=== PATIENT | female | born 1970 | race African-American/Black ===

== ENCOUNTER 2021-07-02 12:23 | Inpatient (IN) | payer OTHER ==
[2021-07-02] MEDS ORDERED: LABETALOL HCL 5 MG/1 ML (100MG/20 ML VIAL) IVPUSH ONE (15:07)
[2021-07-02] MEDS ORDERED: LABETALOL HCL 5 MG/1 ML (100MG/20 ML VIAL) ONE (15:29)
[2021-07-02 16:50] LABS: EPI CELLS 31 /uL (0-25.1); HYALINE CASTS 1 /uL (0-3.1); URINE APPEARANCE CLOUDY; URINE BACTERIA >9,000 /uL (0-1359); URINE BILIRUBIN NEGATIVE (NEGATIVE); URINE COLOR YELLOW; URINE GLUCOSE (UA) NEGATIVE (NEGATIVE); URINE KETONE NEGATIVE (NEGATIVE); URINE LEUK ESTERASE NEGATIVE (NEGATIVE); URINE NITRITE POSITIVE (NEGATIVE); URINE PROTEIN NEGATIVE (NEGATIVE); URINE RBC 9 /uL (0-23.9); URINE WBC 21 /uL (0-25.8)
[2021-07-02 17:04] LABS: ALBUMIN 3.6 g/dl (3.4-5.0); CALCIUM 9.4 mg/dL (8.5-10.1)
[2021-07-02 17:07] LABS: BASO % 0.4 % (0-2.0); CREATININE 0.7 mg/dL (0.55-1.3); EOS % 3.7 % (0-4.5); HEMATOCRIT 42.3 % (32.4-45.2); HEMOGLOBIN 14.4 GM/dL (10.7-15.3); LYMPH % 25.8 % (8-40); MCH 30.4 pg (25.7-33.7); MCHC 34.2 g/dl (32.0-36.0); MEAN CELL VOLUME 88.9 fl (80-96); MEAN PLT VOLUME 9.3 fl (7.5-11.1); MONO % 5.6 % (3.8-10.2); NEUT % 64.5 % (42.8-82.8); PLATELET COUNT 275 10^3/uL (134-434); RBC 4.76 M/mm3 (3.60-5.2); RDW 13.8 % (11.6-15.6); WHITE BLOOD COUNT 11.8 K/mm3 (4.0-10.0)
[2021-07-02] MEDS ORDERED: CEFTRIAXONE 1,000 MG in DEXTROSE 5%-WATER - 50 ML IVPB ONE (17:08)
[2021-07-02 17:09] LABS: BILIRUBIN,TOTAL 0.6 mg/dL (0.2-1); TOT PROT 7.1 g/dl (6.4-8.2)
[2021-07-02 17:11] LABS: INR 1.09 (0.83-1.09); PROTHROMBIN TIME (PATIENT) 12.6 SEC (9.7-13.0)
[2021-07-02] MEDS ORDERED: CEFTRIAXONE 1 GM/50 ML BAG ONE (17:47)
[2021-07-02] MEDS ORDERED: ASPIRIN 81 MG CHEWABLE TABLETS ONE (23:33)
[2021-07-02] MEDS ORDERED: LISINOPRIL 20 MG TABLET ONE (23:34)
[2021-07-02] MEDS: ASPIRIN 81 MG CHEWABLE TABLETS PO SCH (23:41)
[2021-07-02] MEDS: LISINOPRIL 20 MG TABLET PO SCH (23:41)
[2021-07-02] MEDS: NICOTINE 14 MG/24 HOURS TOPICAL PATCH TD SCH (23:41)
[2021-07-03 07:44] LABS: BASO % 0.4 % (0-2.0); EOS % 3.9 % (0-4.5); HEMATOCRIT 41.4 % (32.4-45.2); HEMOGLOBIN 14.5 GM/dL (10.7-15.3); MCH 31.1 pg (25.7-33.7); MCHC 35.1 g/dl (32.0-36.0); MEAN CELL VOLUME 88.5 fl (80-96); MEAN PLT VOLUME 9.2 fl (7.5-11.1); MONO % 6.2 % (3.8-10.2); NEUT % 64.5 % (42.8-82.8); PLATELET COUNT 266 10^3/uL (134-434); RBC 4.67 M/mm3 (3.60-5.2); RDW 13.8 % (11.6-15.6); WHITE BLOOD COUNT 11.9 K/mm3 (4.0-10.0)
[2021-07-03 08:01] LABS: ALBUMIN 3.6 g/dl (3.4-5.0)
[2021-07-03 08:04] LABS: MAGNESIUM 2.6 mg/dL (1.8-2.4)
[2021-07-03 08:05] LABS: CREATININE 0.8 mg/dL (0.55-1.3)
[2021-07-03 08:09] LABS: BLOOD UREA NITROGEN 16.1 mg/dL (7-18)
[2021-07-03 08:10] LABS: CALCIUM 9.6 mg/dL (8.5-10.1)
[2021-07-03 08:11] LABS: BILIRUBIN,TOTAL 0.7 mg/dL (0.2-1); PHOSPHOROUS 4.8 mg/dL (2.5-4.9)
[2021-07-03] MEDS ORDERED: LISINOPRIL 20 MG TABLET ONE (09:06)
[2021-07-03] MEDS ORDERED: ENOXAPARIN NA (PORCINE) 40 MG/0.4 ML DISP.SYRIN SQ ONE (09:06)
[2021-07-03] MEDS ORDERED: ASPIRIN 81 MG CHEWABLE TABLETS ONE (09:06)
[2021-07-03] MEDS ORDERED: POTASSIUM CHLORIDE TABS 20 MEQ TABLET.ER (FP) PO ONE ×2 (10:45→13:21)
[2021-07-03] MEDS ORDERED: ATENOLOL 25 MG TABLET (FP) PO SCH (11:45)
[2021-07-03] MEDS: NICOTINE 14 MG/24 HOURS TOPICAL PATCH TD SCH (13:17)
[2021-07-03] MEDS: LISINOPRIL 20 MG TABLET PO SCH (13:18)
[2021-07-03] MEDS ORDERED: ATENOLOL 25 MG TABLET (FP) ONE (13:21)
[2021-07-03] MEDS ORDERED: LOSARTAN POTASSIUM 50 MG TABLET ONE (13:21)
[2021-07-03] MEDS: ENOXAPARIN NA (PORCINE) 40 MG/0.4 ML DISP.SYRIN SQ SCH (13:33)
[2021-07-03] MEDS: ASPIRIN 81 MG CHEWABLE TABLETS PO SCH (13:33)
[2021-07-03] MEDS: LOSARTAN POTASSIUM 50 MG TABLET PO SCH (13:35)
[2021-07-03] MEDS ORDERED: LABETALOL HCL 100 MG TABLET (FP) PO ONE (17:10)
[2021-07-03] MEDS ORDERED: CLOPIDOGREL BISULFATE 75 MG TABLET (FP) ONE (18:21)
[2021-07-03] MEDS ORDERED: LABETALOL HCL 100 MG TABLET (FP) ONE ×2 (18:21→21:48)
[2021-07-03] MEDS: CLOPIDOGREL BISULFATE 75 MG TABLET (FP) PO SCH (18:37)
[2021-07-03] MEDS ORDERED: ATORVASTATIN CA 80 MG TABLET (FP) ONE (21:31)
[2021-07-03] MEDS: ATORVASTATIN CA 40 MG TABLET (FP) PO SCH (21:52)
[2021-07-03] MEDS ORDERED: ATORVASTATIN CA 40 MG TABLET (FP) PO SCH (22:00)
[2021-07-03] MEDS ORDERED: LABETALOL HCL 100 MG TABLET (FP) PO SCH (22:00)
[2021-07-04 01:22] VITALS: BMI 33.2
[2021-07-04 08:13] LABS: BASO % 0.7 % (0-2.0); EOS % 4.1 % (0-4.5); HEMATOCRIT 42.3 % (32.4-45.2); LYMPH % 30.5 % (8-40); MCH 29.7 pg (25.7-33.7); MCHC 33.2 g/dl (32.0-36.0); MEAN CELL VOLUME 89.6 fl (80-96); MEAN PLT VOLUME 10.1 fl (7.5-11.1); MONO % 5.9 % (3.8-10.2); NEUT % 58.8 % (42.8-82.8); PLATELET COUNT 256 10^3/uL (134-434); RBC 4.73 M/mm3 (3.60-5.2); RDW 14.1 % (11.6-15.6); WHITE BLOOD COUNT 11.4 K/mm3 (4.0-10.0)
[2021-07-04] MEDS ORDERED: LABETALOL HCL 5 MG/1 ML (100MG/20 ML VIAL) IVPUSH ONE (08:30)
[2021-07-04 08:49] LABS: CALCIUM 9.5 mg/dL (8.5-10.1)
[2021-07-04 08:50] LABS: ALBUMIN 3.5 g/dl (3.4-5.0); MAGNESIUM 2.6 mg/dL (1.8-2.4)
[2021-07-04 08:53] LABS: CREATININE 0.8 mg/dL (0.55-1.3)
[2021-07-04 08:54] LABS: BILIRUBIN,TOTAL 0.7 mg/dL (0.2-1); PHOSPHOROUS 4.1 mg/dL (2.5-4.9); TOT PROT 6.6 g/dl (6.4-8.2)
[2021-07-04] MEDS: NICOTINE 14 MG/24 HOURS TOPICAL PATCH TD SCH ×2 (10:10→11:32)
[2021-07-04] MEDS: ASPIRIN 81 MG CHEWABLE TABLETS PO SCH (10:15)
[2021-07-04] MEDS: LOSARTAN POTASSIUM 50 MG TABLET PO SCH (10:30)
[2021-07-04] MEDS: CLOPIDOGREL BISULFATE 75 MG TABLET (FP) PO SCH (10:30)
[2021-07-04] MEDS: ENOXAPARIN NA (PORCINE) 40 MG/0.4 ML DISP.SYRIN SQ SCH ×2 (11:23→11:31)
[2021-07-04] MEDS: LABETALOL HCL 200 MG TABLET (FP) PO SCH ×2 (11:24→21:07)
[2021-07-04] MEDS: ATORVASTATIN CA 40 MG TABLET (FP) PO SCH (21:07)
[2021-07-05 07:17] LABS: BASO % 0.3 % (0-2.0); EOS % 3.9 % (0-4.5); HEMATOCRIT 42.3 % (32.4-45.2); HEMOGLOBIN 13.8 GM/dL (10.7-15.3); LYMPH % 28.5 % (8-40); MCH 29.6 pg (25.7-33.7); MCHC 32.7 g/dl (32.0-36.0); MEAN CELL VOLUME 90.4 fl (80-96); MEAN PLT VOLUME 9.8 fl (7.5-11.1); NEUT % 61.3 % (42.8-82.8); PLATELET COUNT 268 10^3/uL (134-434); RBC 4.67 M/mm3 (3.60-5.2); WHITE BLOOD COUNT 11.6 K/mm3 (4.0-10.0)
[2021-07-05 07:46] LABS: ALBUMIN 3.4 g/dl (3.4-5.0); BLOOD UREA NITROGEN 16.3 mg/dL (7-18); CALCIUM 9.5 mg/dL (8.5-10.1); MAGNESIUM 2.3 mg/dL (1.8-2.4)
[2021-07-05 07:49] LABS: CREATININE 0.8 mg/dL (0.55-1.3); PHOSPHOROUS 4.3 mg/dL (2.5-4.9)
[2021-07-05 07:51] LABS: BILIRUBIN,TOTAL 0.7 mg/dL (0.2-1); TOT PROT 6.5 g/dl (6.4-8.2)
[2021-07-05] MEDS ORDERED: LABETALOL HCL 5 MG/1 ML (100MG/20 ML VIAL) IVPUSH ONE (08:07)
[2021-07-05] MEDS: ENOXAPARIN NA (PORCINE) 40 MG/0.4 ML DISP.SYRIN SQ SCH ×2 (10:04→10:12)
[2021-07-05] MEDS: LOSARTAN POTASSIUM 50 MG TABLET PO SCH (10:04)
[2021-07-05] MEDS: ASPIRIN 81 MG CHEWABLE TABLETS PO SCH (10:04)
[2021-07-05] MEDS: CLOPIDOGREL BISULFATE 75 MG TABLET (FP) PO SCH (10:04)
[2021-07-05] MEDS: NICOTINE 14 MG/24 HOURS TOPICAL PATCH TD SCH ×2 (10:05→10:13)
[2021-07-05] MEDS: LABETALOL HCL 100 MG TABLET (FP) PO SCH ×2 (10:05→22:48)
[2021-07-05] MEDS: ATORVASTATIN CA 40 MG TABLET (FP) PO SCH (22:48)
[2021-07-06 07:03] LABS: BASO % 0.3 % (0-2.0); EOS % 4.3 % (0-4.5); HEMATOCRIT 40.5 % (32.4-45.2); HEMOGLOBIN 13.9 GM/dL (10.7-15.3); MCH 30.5 pg (25.7-33.7); MCHC 34.3 g/dl (32.0-36.0); MEAN CELL VOLUME 88.9 fl (80-96); MEAN PLT VOLUME 9.3 fl (7.5-11.1); MONO % 6.3 % (3.8-10.2); NEUT % 63.1 % (42.8-82.8); PLATELET COUNT 266 10^3/uL (134-434); RBC 4.55 M/mm3 (3.60-5.2)
[2021-07-06 07:19] LABS: CALCIUM 9.8 mg/dL (8.5-10.1)
[2021-07-06 07:20] LABS: ALBUMIN 3.5 g/dl (3.4-5.0); MAGNESIUM 2.3 mg/dL (1.8-2.4)
[2021-07-06 07:22] LABS: PHOSPHOROUS 4.2 mg/dL (2.5-4.9)
[2021-07-06 07:23] LABS: CREATININE 0.8 mg/dL (0.55-1.3)
[2021-07-06 07:24] LABS: BILIRUBIN,TOTAL 0.5 mg/dL (0.2-1); TOT PROT 6.6 g/dl (6.4-8.2)
[2021-07-06] MEDS: LOSARTAN POTASSIUM 50 MG TABLET PO SCH (09:31)
[2021-07-06] MEDS ORDERED: REGADENOSON 0.4 MG/5 ML PRE-FILLED SYRINGE IVPUSH ONE ×2 (12:03→12:05)
[2021-07-06] MEDS: ENOXAPARIN NA (PORCINE) 40 MG/0.4 ML DISP.SYRIN SQ SCH ×2 (13:57→14:02)
[2021-07-06] MEDS: NICOTINE 14 MG/24 HOURS TOPICAL PATCH TD SCH (13:58)
[2021-07-06] MEDS: ASPIRIN 81 MG CHEWABLE TABLETS PO SCH (13:58)
[2021-07-06] MEDS: CLOPIDOGREL BISULFATE 75 MG TABLET (FP) PO SCH (13:58)
[2021-07-06] MEDS: LABETALOL HCL 100 MG TABLET (FP) PO SCH ×2 (13:58→21:14)
[2021-07-06] MEDS ORDERED: LABETALOL HCL 100 MG TABLET (FP) PO SCH (15:57)
[2021-07-06] MEDS: amLODIPine BESYLATE 10 MG TABLET (FP) PO SCH (17:39)
[2021-07-06] MEDS: ATORVASTATIN CA 40 MG TABLET (FP) PO SCH (21:15)
[2021-07-07] MEDS: ASPIRIN 81 MG CHEWABLE TABLETS PO SCH (11:07)
[2021-07-07] MEDS: LOSARTAN POTASSIUM 50 MG TABLET PO SCH (11:07)
[2021-07-07] MEDS: CLOPIDOGREL BISULFATE 75 MG TABLET (FP) PO SCH (11:07)
[2021-07-07] MEDS: NICOTINE 14 MG/24 HOURS TOPICAL PATCH TD SCH (11:08)
[2021-07-07] MEDS: LABETALOL HCL 100 MG TABLET (FP) PO SCH ×2 (11:08→21:26)
[2021-07-07] MEDS: amLODIPine BESYLATE 10 MG TABLET (FP) PO SCH (11:08)
[2021-07-07] MEDS: ENOXAPARIN NA (PORCINE) 40 MG/0.4 ML DISP.SYRIN SQ SCH (11:11)
[2021-07-07 11:48] LABS: BASO % 0.3 % (0-2.0); EOS % 4.1 % (0-4.5); HEMATOCRIT 40.9 % (32.4-45.2); HEMOGLOBIN 14.1 GM/dL (10.7-15.3); LYMPH % 24.1 % (8-40); MCH 30.5 pg (25.7-33.7); MCHC 34.3 g/dl (32.0-36.0); MEAN CELL VOLUME 88.7 fl (80-96); MEAN PLT VOLUME 9.2 fl (7.5-11.1); MONO % 6.3 % (3.8-10.2); NEUT % 65.2 % (42.8-82.8); PLATELET COUNT 265 10^3/uL (134-434); RBC 4.61 M/mm3 (3.60-5.2); RDW 13.8 % (11.6-15.6); WHITE BLOOD COUNT 11.9 K/mm3 (4.0-10.0)
[2021-07-07 12:10] LABS: CALCIUM 9.8 mg/dL (8.5-10.1)
[2021-07-07 12:11] LABS: ALBUMIN 3.6 g/dl (3.4-5.0); BLOOD UREA NITROGEN 13.7 mg/dL (7-18); MAGNESIUM 2.4 mg/dL (1.8-2.4)
[2021-07-07 12:14] LABS: CREATININE 0.8 mg/dL (0.55-1.3); PHOSPHOROUS 4.8 mg/dL (2.5-4.9)
[2021-07-07 12:15] LABS: BILIRUBIN,TOTAL 0.8 mg/dL (0.2-1); TOT PROT 6.9 g/dl (6.4-8.2)
[2021-07-07] MEDS: ATORVASTATIN CA 40 MG TABLET (FP) PO SCH (21:26)
[2021-07-08] MEDS ORDERED: POLYETHYLENE GLYCOL (HEALTHYLAX) 3350 17 GM PACKET PO ONE (10:45)
[2021-07-08] MEDS: LABETALOL HCL 100 MG TABLET (FP) PO SCH (10:59)
[2021-07-08] MEDS: ASPIRIN 81 MG CHEWABLE TABLETS PO SCH (11:00)
[2021-07-08] MEDS: LOSARTAN POTASSIUM 50 MG TABLET PO SCH (11:01)
[2021-07-08] MEDS: amLODIPine BESYLATE 10 MG TABLET (FP) PO SCH (11:01)
[2021-07-08] MEDS: NICOTINE 14 MG/24 HOURS TOPICAL PATCH TD SCH (11:02)
[2021-07-08] MEDS: CLOPIDOGREL BISULFATE 75 MG TABLET (FP) PO SCH (11:02)
[2021-07-08] MEDS: ENOXAPARIN NA (PORCINE) 40 MG/0.4 ML DISP.SYRIN SQ SCH (11:02)
[2021-07-08 15:21] VITALS: BP 137/71; PULSE 76; TEMP 98.2
== END 2021-07-08 17:00 | disposition home or self-care (01) | DRG 65 ==
LOC: JER 12:23 → JERBED 19:28 → J4W 07-04 00:49
PROVIDERS: ADMIT Hospitalist; ATTEND Internal Medicine
DX: I63.9 Cerebral infarction, unspecified (principal); G81.91 Hemiplegia, unspecified affecting right dominant side; I16.1 Hypertensive emergency; I16.0 Hypertensive urgency; I10 Essential (primary) hypertension; F12.90 Cannabis use, unspecified, uncomplicated; E78.5 Hyperlipidemia, unspecified; I69.322 Dysarthria following cerebral infarction; I65.22 Occlusion and stenosis of left carotid artery; F17.210 Nicotine dependence, cigarettes, uncomplicated; R20.2 Paresthesia of skin; E66.9 Obesity, unspecified; I25.10 Atherosclerotic heart disease of native coronary artery without angina pectoris; E78.00 Pure hypercholesterolemia, unspecified; Z91.14 Patient's other noncompliance with medication regimen; Z68.33 Body mass index [BMI] 33.0-33.9, adult; R29.703 NIHSS score 3; E87.6 Hypokalemia
CPT/HCPCS: 36415; 70450-TC; 70544-TC; 70547-TC; 70551-TC; 71045-TC-FY; 72141-TC; 78452-TC; 80053; 80061; 81003; 82550; 82962; 83036; 83735; 84100; 84443; 84484; 85025; 85610; 85730; 86850; 86900; 86901; 93005; 93010; 93017; 93306-TC; 93880-TC; 97116-GP; 97161-GP; 99285-25; A9502; C9803; J2785; U0003; U0005

== ENCOUNTER 2022-06-10 16:35 | Observation (INO) | payer OTHER ==
[2022-06-10 16:53] VITALS: BMI 30.7
[2022-06-10] MEDS ORDERED: MECLIZINE HCL 12.5 MG TABLET PO ONE (19:26)
[2022-06-10 19:46] LABS: BASO % 0.4 % (0-2.0); EOS % 5.6 % (0-4.5); HEMATOCRIT 42.8 % (32.4-45.2); HEMOGLOBIN 14.1 GM/dL (10.7-15.3); LYMPH % 28.8 % (8-40); MCH 29.3 pg (25.7-33.7); MEAN CELL VOLUME 88.9 fl (80-96); MEAN PLT VOLUME 9.7 fl (7.5-11.1); MONO % 5.7 % (3.8-10.2); NEUT % 59.5 % (42.8-82.8); PLATELET COUNT 341 10^3/uL (134-434); RBC 4.82 M/mm3 (3.60-5.2); RDW 13.9 % (11.6-15.6); WHITE BLOOD COUNT 11.4 K/mm3 (4.0-10.0)
[2022-06-10 20:11] LABS: CHLORIDE 110 mmol/L (98-107); SODIUM 147 mmol/L (136-145)
[2022-06-10 20:14] LABS: ALBUMIN 3.7 g/dl (3.4-5.0); ANION GAP 9 MMOL/L (8-16); BLOOD UREA NITROGEN 11.6 mg/dL (7-18); CALCIUM 9.6 mg/dL (8.5-10.1); CO2 28 mmol/L (21-32); GLUCOSE,RANDOM 83 mg/dL (74-106)
[2022-06-10 20:17] LABS: CREATININE 0.9 mg/dL (0.55-1.3); SGOT/AST 12 U/L (15-37); SGPT/ALT 28 U/L (13-61)
[2022-06-10 20:19] LABS: BILIRUBIN,TOTAL 0.7 mg/dL (0.2-1); TOT PROT 7.2 g/dl (6.4-8.2)
[2022-06-10 20:20] LABS: ALK PHOS 164 U/L (45-117)
[2022-06-10] MEDS ORDERED: ASPIRIN 81 MG CHEWABLE TABLETS PO ONE (21:27)
[2022-06-10] MEDS ORDERED: ASPIRIN 81 MG CHEWABLE TABLETS ONE (22:31)
[2022-06-10] MEDS ORDERED: MECLIZINE HCL 12.5 MG TABLET ONE (22:31)
[2022-06-11] MEDS ORDERED: SODIUM CHLORIDE 0.45% 1,000 ML IV SCH (01:15)
[2022-06-11] MEDS ORDERED: MECLIZINE HCL 25 MG TABLET (FP) PO PRN (01:17)
[2022-06-11 10:12] LABS: BASO % 0.4 % (0-2.0); EOS % 5.4 % (0-4.5); HEMATOCRIT 40.2 % (32.4-45.2); HEMOGLOBIN 13.6 GM/dL (10.7-15.3); LYMPH % 27.3 % (8-40); MCH 29.8 pg (25.7-33.7); MCHC 33.7 g/dl (32.0-36.0); MEAN CELL VOLUME 88.5 fl (80-96); MEAN PLT VOLUME 9.5 fl (7.5-11.1); MONO % 7.1 % (3.8-10.2); NEUT % 59.8 % (42.8-82.8); PLATELET COUNT 295 10^3/uL (134-434); RBC 4.55 M/mm3 (3.60-5.2); RDW 13.6 % (11.6-15.6); WHITE BLOOD COUNT 10.9 K/mm3 (4.0-10.0)
[2022-06-11 10:54] LABS: BLOOD UREA NITROGEN 12.9 mg/dL (7-18); CALCIUM 9.1 mg/dL (8.5-10.1); MAGNESIUM 2.2 mg/dL (1.8-2.4)
[2022-06-11 10:55] LABS: ALBUMIN 3.5 g/dl (3.4-5.0)
[2022-06-11 10:58] LABS: CREATININE 0.8 mg/dL (0.55-1.3); PHOSPHOROUS 4.2 mg/dL (2.5-4.9)
[2022-06-11 10:59] LABS: BILIRUBIN,TOTAL 1.3 mg/dL (0.2-1); TOT PROT 6.8 g/dl (6.4-8.2)
[2022-06-11] MEDS ORDERED: CLOPIDOGREL BISULFATE 75 MG TABLET (FP) ONE (18:27)
[2022-06-11] MEDS ORDERED: LOSARTAN POTASSIUM 50 MG TABLET ONE (18:27)
[2022-06-11] MEDS ORDERED: ENOXAPARIN NA (PORCINE) 40 MG/0.4 ML DISP.SYRIN SQ ONE (18:28)
[2022-06-11] MEDS ORDERED: ASPIRIN 81 MG CHEWABLE TABLETS ONE (18:28)
[2022-06-11] MEDS: CLOPIDOGREL BISULFATE 75 MG TABLET (FP) PO SCH (18:34)
[2022-06-11] MEDS: ENOXAPARIN NA (PORCINE) 40 MG/0.4 ML DISP.SYRIN SQ SCH (18:34)
[2022-06-11] MEDS: NICOTINE 14 MG/24 HOURS TOPICAL PATCH TD SCH (18:34)
[2022-06-11] MEDS: ASPIRIN 81 MG CHEWABLE TABLETS PO SCH (18:34)
[2022-06-11] MEDS: LOSARTAN POTASSIUM 50 MG TABLET PO SCH (18:34)
[2022-06-11 18:43] LABS: EPI CELLS 8 /uL (0-25.1); HYALINE CASTS 0 /uL (0-3.1); PH,URINE 6.5 (5.0-8.0); URINE APPEARANCE CLOUDY; URINE BACTERIA >9,000 /uL (0-1359); URINE BILIRUBIN NEGATIVE (NEGATIVE); URINE COLOR YELLOW; URINE GLUCOSE (UA) NEGATIVE (NEGATIVE); URINE KETONE NEGATIVE (NEGATIVE); URINE LEUK ESTERASE 2+ (NEGATIVE); URINE NITRITE POSITIVE (NEGATIVE); URINE PROTEIN NEGATIVE (NEGATIVE); URINE RBC 17 /uL (0-23.9); URINE WBC 148 /uL (0-25.8)
[2022-06-12 08:40] LABS: CHOLESTEROL 147 mg/dL (50-200); TRIGLYCERIDES 119 mg/dL (0-150)
[2022-06-12] MEDS ORDERED: LOSARTAN POTASSIUM 50 MG TABLET ONE (08:40)
[2022-06-12] MEDS ORDERED: ASPIRIN COATED 81 MG TABLET.EC ONE (08:40)
[2022-06-12] MEDS ORDERED: CLOPIDOGREL BISULFATE 75 MG TABLET (FP) ONE (08:40)
[2022-06-12 08:41] LABS: LDL CHOLESTEROL (ONLY SJRH) 96 mg/dL (5-100)
[2022-06-12] MEDS ORDERED: NICOTINE 14 MG/24 HOURS TOPICAL PATCH TD ONE (08:41)
[2022-06-12] MEDS ORDERED: ENOXAPARIN NA (PORCINE) 40 MG/0.4 ML DISP.SYRIN SQ ONE (08:41)
[2022-06-12 08:44] LABS: HDL CHOLESTEROL 33 mg/dL (40-60)
[2022-06-12] MEDS: LOSARTAN POTASSIUM 50 MG TABLET PO SCH (08:54)
[2022-06-12] MEDS: CLOPIDOGREL BISULFATE 75 MG TABLET (FP) PO SCH (08:54)
[2022-06-12] MEDS: ASPIRIN 81 MG CHEWABLE TABLETS PO SCH (08:54)
[2022-06-12] MEDS: ENOXAPARIN NA (PORCINE) 40 MG/0.4 ML DISP.SYRIN SQ SCH (08:54)
[2022-06-12] MEDS: NICOTINE 14 MG/24 HOURS TOPICAL PATCH TD SCH (08:59)
[2022-06-12] MEDS ORDERED: ATORVASTATIN CA 40 MG TABLET (FP) PO SCH (22:00)
[2022-06-13 07:40] VITALS: RESP 16
[2022-06-13] MEDS ORDERED: MECLIZINE HCL 25 MG TABLET (FP) ONE (10:19)
[2022-06-13] MEDS ORDERED: ASPIRIN 81 MG CHEWABLE TABLETS ONE (10:20)
[2022-06-13] MEDS ORDERED: NICOTINE 14 MG/24 HOURS TOPICAL PATCH TD ONE (10:20)
[2022-06-13] MEDS ORDERED: CLOPIDOGREL BISULFATE 75 MG TABLET (FP) ONE (10:20)
[2022-06-13] MEDS ORDERED: LOSARTAN POTASSIUM 50 MG TABLET ONE (10:20)
[2022-06-13] MEDS ORDERED: ENOXAPARIN NA (PORCINE) 40 MG/0.4 ML DISP.SYRIN SQ ONE (10:21)
[2022-06-13] MEDS ORDERED: amLODIPine BESYLATE 10 MG TABLET (FP) PO SCH (10:30)
[2022-06-13] MEDS: ENOXAPARIN NA (PORCINE) 40 MG/0.4 ML DISP.SYRIN SQ SCH (10:47)
[2022-06-13] MEDS: ASPIRIN 81 MG CHEWABLE TABLETS PO SCH (10:47)
[2022-06-13] MEDS: CLOPIDOGREL BISULFATE 75 MG TABLET (FP) PO SCH (10:47)
[2022-06-13] MEDS: NICOTINE 14 MG/24 HOURS TOPICAL PATCH TD SCH (10:47)
[2022-06-13] MEDS: LOSARTAN POTASSIUM 50 MG TABLET PO SCH (10:48)
[2022-06-13 12:58] VITALS: BP 163/87; PULSE 89; TEMP 98.2
== END 2022-06-13 12:58 | disposition home or self-care (01) ==
LOC: JER 16:35 → JERBED 21:27
PROVIDERS: ADMIT Internal Medicine
PROC: 3E03329 Introduction of Other Anti-infective into Peripheral Vein, Percutaneous Approach (ICD-10-PCS; principal; 2022-06-10)
PROC: 3E0337Z Introduction of Electrolytic and Water Balance Substance into Peripheral Vein, Percutaneous Approach (ICD-10-PCS; 2022-06-10)
DX: R42 Dizziness and giddiness (principal); R77.8 Other specified abnormalities of plasma proteins; D72.829 Elevated white blood cell count, unspecified; I10 Essential (primary) hypertension; E66.01 Morbid (severe) obesity due to excess calories; Z68.30 Body mass index [BMI] 30.0-30.9, adult; Z29.8 Encounter for other specified prophylactic measures; F17.210 Nicotine dependence, cigarettes, uncomplicated; I73.9 Peripheral vascular disease, unspecified; Z86.73 Personal history of transient ischemic attack (TIA), and cerebral infarction without residual deficits; Z88.0 Allergy status to penicillin
CPT/HCPCS: 0241U-QW; 36415; 70450-TC; 70551-TC; 71045-TC-FY; 80053; 80061; 81003; 83735; 84100; 84443; 84484; 85025; 87086; 87186; 93005; 93010; 93880-TC; 99285-25; G0378